=== PATIENT | male | born 1990 | race African-American/Black ===

== ENCOUNTER 2016-07-20 16:43 | Emergency (ER) | payer MEDICAID ==
[~2016-07-20] VITALS: Ht 180.3 cm; Wt 120.0 kg
[~2016-07-20 16:43] MED LIST: CITA10TA69 PO; DIVA500T3 PO; RISP0.2514 PO
[2016-07-20] MEDS ORDERED: DIPHENHYDRAMINE 50MG CAPSULE PO STA (20:29)
[2016-07-20] MEDS ORDERED: LORAZEPAM 1MG TABLET PO ONE (20:30)
[2016-07-20 20:57] LABS: BASOPHILS % 0.7 % (0.0-2.0); CHLORIDE 103 mEq/L (98-107); EOSINOPHILS % 2.7 % (0.0-5.0); HEMATOCRIT. 40.4 % (42.0-52.0); HEMOGLOBIN. 13.8 g/dL (14.0-18.0); INDEX HEMOLYSI 4 (1-3); INDEX ICTERIC 1 (1-4); INDEX LIPEMIC 1 (1-3); LYMPHOCYTES % 36.8 % (20.0-50.0); MEAN CORPUSCULAR HEMOGLOBIN 30.4 pg (28.0-32.0); MEAN CORPUSCULAR HGB CONC 34.1 g/dL (31.0-37.0); MEAN CORPUSCULAR VOLUME 89.3 fL (80.0-94.0); MEAN PLATELET VOLUME 8.7 fl (7.4-10.4); MONOCYTES % 7.3 % (2.0-8.0); NEUTROPHILS % 52.5 % (40.0-76.0); PLATELET 256 x1000/uL (130-400); RED BLOOD CELL COUNT 4.52 mill/uL (4.7-6.1); RED CELL DISTRIBUTION WIDTH 13.4 % (11.6-14.6); WHITE BLOOD COUNT 6.2 x1000/uL (4.5-11.0)
[2016-07-20 21:00] LABS: ANION GAP 12; CALCIUM 8.5 mg/dL (8.5-10.1); CARBON DIOXIDE 28 mEq/L (21-32); UREA NITROGEN BLOOD 12 mg/dL (7-21)
[2016-07-20 21:02] LABS: ETHANOL BLOOD < 10 mg/dL
[2016-07-20 21:03] LABS: ACETAMINOPHEN < 2 ug/mL (10-30); eGFR > 60 mL/min (>60)
[2016-07-21 05:16] LABS: *AMPHETAMINES SCREEN URINE NEGATIVE (NEGATIVE); *BARBITURATES SCREEN URINE NEGATIVE (NEGATIVE); *BENZODIAZEPINES SCREEN URINE NEGATIVE (NEGATIVE); *COCAINE SCREEN URINE NEGATIVE (NEGATIVE); CANNABINOID URINE SCREEN NEGATIVE (NEGATIVE); ECSTASY MDMA SCREEN URINE NEGATIVE (NEGATIVE); METHADONE URINE SCREEN NEGATIVE (NEGATIVE); OPIATES URINE SCREEN NEGATIVE (NEGATIVE); PHENCYCLIDINE URINE SCREEN NEGATIVE (NEGATIVE)
[2016-07-21] MEDS ORDERED: DIPHENHYDRAMINE 50MG CAPSULE PO STA (07:38)
[2016-07-21] MEDS ORDERED: LORAZEPAM 1MG TABLET PO SCH (07:40)
[2016-07-21 11:47] VITALS: BP 132/75
== END 2016-07-21 11:49 ==
LOC: ER 16:44
DX: F31.9 Bipolar disorder, unspecified (principal); R45.851 Suicidal ideations; F20.9 Schizophrenia, unspecified; F12.10 Cannabis abuse, uncomplicated
CPT/HCPCS: 36415; 80048; 80305; 80329; 85025; 99285; G0482; Z7610; 80307; Q0163

== ENCOUNTER 2016-11-14 12:37 | Emergency (ER) | payer MEDICAID ==
[~2016-11-14] VITALS: Ht 188 cm; Wt 104.0 kg
[~2016-11-14 12:37] MED LIST changes: +CITA10TA16 PO; -CITA10TA69 PO
[2016-11-14 14:53] VITALS: BP 114/70
== END 2016-11-14 15:00 | disposition home or self-care (01) ==
LOC: ER 13:54
DX: R07.89 Other chest pain (principal); X50.9XXA Other and unspecified overexertion or strenuous movements or postures, initial encounter; Y93.73 Activity, racquet and hand sports; Y92.838 Other recreation area as the place of occurrence of the external cause; R03.0 Elevated blood-pressure reading, without diagnosis of hypertension; F12.90 Cannabis use, unspecified, uncomplicated; F25.0 Schizoaffective disorder, bipolar type
CPT/HCPCS: 71010; 93005; 99284

== ENCOUNTER 2016-11-29 12:18 | Emergency (ER) | payer MEDICAID ==
[~2016-11-29] VITALS: Ht 188 cm; Wt 105.0 kg
[2016-11-29] MEDS ORDERED: OLANZAPINE 10 MG/VIAL IM ONE (14:45)
[2016-11-29 15:32] LABS: BASOPHILS % 1.2 % (0.0-2.0); EOSINOPHILS % 1.6 % (0.0-5.0); HEMATOCRIT. 40.8 % (42.0-52.0); HEMOGLOBIN. 13.8 g/dL (14.0-18.0); LYMPHOCYTES % 33.6 % (20.0-50.0); MEAN CORPUSCULAR HEMOGLOBIN 30.1 pg (28.0-32.0); MEAN CORPUSCULAR VOLUME 88.8 fL (80.0-94.0); MEAN PLATELET VOLUME 9.4 fl (7.4-10.4); MONOCYTES % 6.7 % (2.0-8.0); NEUTROPHILS % 56.9 % (40.0-76.0); PLATELET 228 x1000/uL (130-400); RED BLOOD CELL COUNT 4.59 mill/uL (4.7-6.1); RED CELL DISTRIBUTION WIDTH 13.2 % (11.6-14.6)
[2016-11-29 15:33] LABS: CHLORIDE 103 mEq/L (98-107)
[2016-11-29 15:42] LABS: CARBON DIOXIDE 26 mEq/L (21-32); ETHANOL BLOOD < 10 mg/dL
[2016-11-29 16:21] VITALS: BP 132/84
== END 2016-11-29 16:27 | disposition home or self-care (01) ==
LOC: ER 14:29
DX: R44.0 Auditory hallucinations (principal); F25.0 Schizoaffective disorder, bipolar type; F12.90 Cannabis use, unspecified, uncomplicated; Z98.890 Other specified postprocedural states
CPT/HCPCS: 36415; 80048; 80307; 80329; 85025; 96372; 99284; G0482; J3490